=== PATIENT | female | born 1965 | race Caucasian/White ===

== ENCOUNTER 2025-01-14 05:53 | Emergency (ER) | payer SELFPAY ==
[2025-01-14] VITALS (61 sets, daily range): BP systolic 56–146; BP diastolic 47–98; PULSE 73–112; TEMP 35.1–36.5; O2SAT 82–100; BMI 25.1
--- NOTE | 2025-01-14 06:06 | ECG_ITS ---
[facility] Test Date: 2025-01-14 Pat Name: RENEE VO Department: Room: - Gender: Female [employer]: : 1965 Requested By: [id number] Order Number: [id number] Reading MD: MAGDI PAZ M.D. Measurements Intervals [place] Rate: 97 P: 37 MI: 136 QRS: 86 QRSD: 94 T: -7 QT: 428 QTc: 482 Interpretive Statements 1100 Sinus rhythm 1570 with occasional ventricular premature complexes 5234 Left ventricular hypertrophy with repolarization abnormality 9150 abnormal ECG Compared to ECG 03/26/2017 16:07:01 Ventricular premature complex(es) now present Left ventricular hypertrophy now present Electronically Signed On 01-14-2025 21:32:44 EST by MAGDI PAZ M.D.
--- NOTE | 2025-01-14 06:29 | XR_ITS ---
[place] [id number] Patient Name: HEDY VO MRN: [id number] date: 1965 Sex: F Assigned Patient Location: ER Current Patient Location: ED.MAIN Accession/Order Number: [id number] Exam Date: 01/14/2025 06:45 Report Date: 01/14/2025 07:50 At the request of: FRANDY QUACH MD Procedure: XR chest 1V PORTABLE AP ERECT CHEST 0625 hours CLINICAL HISTORY: chest and neck pain COMPARISON: None The heart is top normal in size. The thoracic aorta is dilated. There is no vascular congestion. The lungs, as visualized, are clear. There is no effusion or pneumothorax. The osseous structures are intact. There is dextroscoliotic curvature. XR/XR chest 1V IMPRESSION: SUSPECTED THORACIC AORTIC ANEURYSM. NO ACUTE PULMONARY FINDINGS Impression dictated by: Hedy Don M.D. 01/14/2025 7:50 AM Dictation Location: [place] [address] Electronically authenticated by: [id number] Y Date: 01/14/2025 07:50
[2025-01-14 06:41] LABS: Hematocrit 38.5 % (36.0-48.0); Hemoglobin 12.0 g/dL (12.0-16.0); Immature Granulocytes Abs Auto 0.05 10^3/uL (0.00-0.03); Immature Granulocytes Pct Auto 0.5 % (0.0-0.5); Lymphocytes Absolute Auto 2.2 10^3/uL (1.2-3.8); Mean Corpuscular HGB Conc 31.2 g/dL (29.9-35.2); Mean Corpuscular Hemoglobin 26.8 pg (26.7-34.0); Mean Corpuscular Volume 85.9 fL (81.0-99.0); Platelet Count 175 10^3/uL (150-450); Red Blood Count 4.48 10^6/uL (4.20-5.40); White Blood Count 10.5 10^3/uL (4.0-11.0)
--- NOTE | 2025-01-14 06:41 | ED.GENADUL1 ---
HPI HPI - General Adult General Chief complaint: Neck Pain/Injury Time Seen by Provider: 01/14/25 06:29 Source: patient Mode of arrival: ambulance Limitations: no limitations History of Present Illness HPI narrative: patient presents with right sided chest pain radiating into her neck and right shoulder. Started around 3pm. Associated with nausea, vomiting and shortness of breath. Arrives here and feels weak. Chest pain has improved. Continues to have right neck and shoulder pain. No associated abdominal pain Related Data Allergies Allergy/AdvReac Type Severity Reaction Status Date / Time lisinopril Allergy Unknown Verified 01/14/25 06:00 Opioid HPI Opioid Management Most Recent Opioid Data: Last Pain Scale 7 01/14/25, 09:00 Last ED Pain Assessment 01/14/25, 08:18 Last MAR Pain Assessment 01/14/25, 09:00 Review of Systems ROS Status of ROS 10 or more systems reviewed and unremarkable except as noted in history and below PFSH PFSH Social History Little interest or pleasure in doing things: not at all Feeling down, depressed, or hopeless: not at all Exam Constitutional Vital Signs, click to edit/add: Last Vital Signs Temp 97.7 F 01/14/25 10:20 Pulse 110 H 01/14/25 11:00 Resp 19 01/14/25 11:00 BP 125/98 H 01/14/25 11:00 Pulse Ox 99 01/14/25 11:00 O2 Del Method Nasal Cannula 01/14/25 07:40 O2 Flow Rate 3 01/14/25 07:40 Common normals: oriented x3, alert and well nourished General appearance: in distress [facility] Common normals: normocephalic and head/scalp atraumatic Eye Common normals: EOMs intact bilaterally and conjunctivae normal Respiratory Common normals: normal respiratory effort, no retractions, no use of accessory muscles and clear to auscultation bilaterally Cardio Common normals: regular rate, regular rhythm, S1 normal heart sound and S2 normal heart sound GI Common normals: Normal to inspection, nondistended, normoactive bowel sounds present, soft to palpation and non-tender Extremity Common normals: normal to inspection and full ROM Neuro Common normals: oriented x3, CN's II-XII intact bilaterally, moves all extremities and no focal motor deficits Psych Appearance: grossly normal Course Vital Signs Vital signs: Vital Signs Pulse Rate 101 H 01/14/25 05:55 Respiratory Rate 18 01/14/25 05:55 Blood Pressure 84/58 L 01/14/25 05:55 Pulse Oximetry 98 01/14/25 05:55 Oxygen Delivery Method Room Air 01/14/25 05:55 Temperature 97.7 F 01/14/25 10:20 Pulse Rate 110 H 01/14/25 11:00 Respiratory Rate 19 01/14/25 11:00 Blood Pressure 125/98 H 01/14/25 11:00 Pulse Oximetry 99 01/14/25 11:00 Oxygen Delivery Method Nasal Cannula 01/14/25 07:40 Oxygen Delivery Flow Rate 3 01/14/25 07:40 Medical Decision Making MDM Narrative Medical decision making narrative: presents with acute onset of right sided chest pain radiating into her right shoulder and neck. Daily cigarette smoker. Denies any past medical history of heart disease. Her pain has improved of her chest but continued discomfort of her right shoulder and neck. No longer has nauseated. EKG NSR with Q wave V1-[address] depression II, III, aVF and V5-6. appears to be having ACS-subendo type MS. heparin bolus ordered. labs pending. cxray reviewed and per my preliminary review no evidence of pneumo or aneurysm. Discussed with Dr Haley. labs pending at change of shift. Patient remains hypotensive and additional IV fluids ordered Lab Data Labs: Lab Results 01/14/25 Range/Units 06:05 WBC 10.5 (4.0-11.0) 10^3/uL RBC 4.48 (4.20-5.40) 10^6/uL Hgb 12.0 (12.0-16.0) g/dL Hct 38.5 (36.0-48.0) % MCV 85.9 (81.0-99.0) fL MCH 26.8 (26.7-34.0) pg MCHC 31.2 (29.9-35.2) g/dL RDW 13.7 (11.0-15.0) % Plt Count 175 (150-450) 10^3/uL MPV 11.6 (9.5-13.5) fL Neut % (Auto) 72.1 (43.0-75.0) % Lymph % (Auto) 20.5 (20.5-60.0) % [place] % (Auto) 5.0 (1.7-12.0) % Eos % (Auto) 1.6 (0.9-7.0) % Baso % (Auto) 0.3 (0.2-2.0) % Neut # (Auto) 7.6 H (1.4-6.5) 10^3/uL Lymph # (Auto) 2.2 (1.2-3.8) 10^3/uL [place] # (Auto) 0.5 (0.3-0.8) 10^3/uL Eos # (Auto) 0.2 (0.0-0.7) 10^3/uL Baso # (Auto) 0.0 (0.0-0.1) 10^3/uL Abs Immat Gran (auto) 0.05 H (0.00-0.03) 10^3/uL Imm/Tot Granulo (auto) 0.5 (0.0-0.5) % PT 10.6 (9.0-11.6) sec INR 1.00 APTT 24.4 (22.3-36.2) sec Sodium 140 (136-145) mmol/L Potassium 3.7 (3.5-5.1) mmol/L Chloride 104 (98-107) mmol/L Carbon Dioxide 26.6 (21.0-32.0) mmol/L Anion Gap 13.1 BUN 12.0 (7.0-18.0) mg/dL Creatinine 1.03 H (0.55-1.02) mg/dL Est GFR ( Amer) >60 (>=60 mL/min/1.73m^2) Est GFR (Non-Af Amer) 54 L (>=60 mL/min/1.73m^2) BUN/Creatinine Ratio 11.7 Glucose 214 H (74-106) mg/dL Calcium 8.4 L (8.5-10.1) mg/dL Total Bilirubin 0.3 (0.2-1.0) mg/dL Direct Bilirubin 0.1 (0.0-0.2) mg/dL AST 40 H (15-37) U/L ALT 26 (14-59) U/L Alkaline Phosphatase 77 (46-116) U/L Troponin I High Sens 197.5 H* (4.0-51.3) pg/mL Total Protein 6.2 L (6.4-8.2) g/dL Albumin 3.0 L (3.4-5.0) g/dL Globulin 3.2 g/dL Albumin/Globulin Ratio 0.9 Discharge Plan Discharge Chief Complaint: Neck Pain/Injury Clinical Impression: Aneurysm of thoracic aorta, Hypotension Patient Disposition: [facility] Time of Disposition Decision: 10:46 Discharge Location: [facility] Condition: Critical Mode of Transportation: EMS Discharge Date/Time: 01/14/25 11:20
[2025-01-14] MEDS: 0.9 % SODIUM CHLORIDE 1,000 ML 1000 ML IV (06:48)
[2025-01-14 07:05] LABS: Anion Gap 13.1; Blood Urea Nitrogen 12.0 mg/dL (7.0-18.0); Calcium 8.4 mg/dL (8.5-10.1); Carbon Dioxide 26.6 mmol/L (21.0-32.0); Chloride 104 mmol/L (98-107); Estimated GFR (African America >60 (>=60 mL/min/1.73m^2); Estimated GFR (Non-African Ame 54 (>=60 mL/min/1.73m^2); Glucose 214 mg/dL (74-106); Potassium 3.7 mmol/L (3.5-5.1); Sodium 140 mmol/L (136-145)
[2025-01-14] MEDS: HEPARIN SODIUM (PORCINE) 5,000 UNIT/ML VIAL 4000 UNIT IV (07:24)
[2025-01-14] MEDS: HEPARIN SODIUM,PORCINE/D5W 25,000 UNIT/500 ML IV.SOLN 16 UNIT IV (07:25)
[2025-01-14 07:29] LABS: INR 1.00; Partial Thromboplastin Time 24.4 sec (22.3-36.2); Prothrombin Time 10.6 sec (9.0-11.6)
[2025-01-14 07:30] LABS: Alanine Aminotransferase 26 U/L (14-59); Albumin Globulin Ratio 0.9; Albumin Level 3.0 g/dL (3.4-5.0); Alkaline Phosphatase 77 U/L (46-116); Aspartate Amino Transferase 40 U/L (15-37); Globulin 3.2 g/dL; Total Protein 6.2 g/dL (6.4-8.2)
[2025-01-14] MEDS: 0.9 % SODIUM CHLORIDE 1,000 ML 999 ML IV (07:34)
[2025-01-14] MEDS: NOREPINEPHRINE BITARTRATE/D5W 4 MG/250 ML PREMIX 30 MG IV (07:48)
--- NOTE | 2025-01-14 07:58 | CT_ITS ---
The [address] [address] Patient Name: HEDY VO MRN: [id number] date: 1965 Sex: F Assigned Patient Location: ER Current Patient Location: Accession/Order Number: [id number] Exam Date: 01/14/2025 08:06 Report Date: 01/14/2025 08:34 At the request of: JAMES SILVA MD Procedure: CT angio chest CTA CHEST WITH CONTRAST CLINICAL HISTORY: thoracic aneurysm on chest x-ray . Chest pain and hypotension. COMPARISON: Chest x-ray 01/14/2025 TECHNIQUE: Spiral images were obtained through the chest following intravenous administration of 100 mL of Omnipaque 350. Images were reviewed using both narrow and wide window settings. Sagittal, coronal and 3 D volume-rendered reconstructions were performed and reviewed. This CT exam was performed using one or more following dose reduction techniques: Automated exposure control, adjustment of the mA and/or kV according to patient size, or use of iterative reconstruction technique. FINDINGS: The heart is top normal in size. There is pericardial effusion. There is aneurysmal dilatation of the ascending aorta with diameter of approximately 6.7 cm. There is some wall irregularity anteriorly which could indicate leak/impending rupture. There is some tapering at the arch however the proximal descending aorta is also dilated with diameter of approximately 6.2 cm. The descending aorta tapers down toward the diaphragmatic hiatus where there are some atherosclerotic plaque. There is adequate opacification of the pulmonary arteries. No emboli are identified. No pathologic lymphadenopathy is seen. Mild degenerative changes and dextroscoliotic curvature are visualized at the spine. Mild scarring and atelectasis are present. There is no consolidation, effusion or pneumothorax. Limited cuts through the upper abdomen show no contributory abnormality. CT/CT angio chest IMPRESSION: NO CT EVIDENCE OF PULMONARY EMBOLISM. ASCENDING AND DESCENDING AORTIC ANEURYSMS, DESCRIBED. LEAK AND/OR IMPENDING RUPTURE AT THE PROXIMAL ASCENDING AORTA IS NOT EXCLUDED. PERICARDIAL EFFUSION. MILD ATELECTASIS AND SCARRING. Comment: Findings were discussed with Dr. Silva at 0830 hours Impression dictated by: Hedy Don M.D. 01/14/2025 8:34 AM Dictation Location: [place] [address] Electronically authenticated by: [id number] Y Date: 01/14/2025 08:34
[2025-01-14] MEDS: MORPHINE SULFATE 2 MG/ML SYRINGE IV (09:00)
--- NOTE | 2025-01-14 10:47 | ED.GENADUL1 ---
HPI HPI - General Adult General Chief complaint: Neck Pain/Injury Time Seen by Provider: 01/14/25 06:29 Source: patient Mode of arrival: ambulance Limitations: no limitations History of Present Illness HPI narrative: 59-year-old female presented to the emergency department and was initially seen by Dr. Esteban and signed out to me after discussing the case with him thoroughly. Please see his full history and physical exam. Related Data Allergies Allergy/AdvReac Type Severity Reaction Status Date / Time lisinopril Allergy Unknown Verified 01/14/25 06:00 Opioid HPI Opioid Management Most Recent Opioid Data: Last Pain Scale 7 Today, 09:00 Last ED Pain Assessment Today, 08:18 Last MAR Pain Assessment Today, 09:00 PFS PFSH Social History Little interest or pleasure in doing things: not at all Feeling down, depressed, or hopeless: not at all Exam Constitutional Vital Signs, click to edit/add: Last Vital Signs Temp 97.7 F 01/14/25 10:20 Pulse 112 H 01/14/25 10:41 Resp 20 01/14/25 10:41 BP 114/72 01/14/25 10:41 Pulse Ox 100 01/14/25 10:41 O2 Del Method Nasal Cannula 01/14/25 07:40 O2 Flow Rate 3 01/14/25 07:40 Course Vital Signs Vital signs: Vital Signs Pulse Rate 101 H 01/14/25 05:55 Respiratory Rate 18 01/14/25 05:55 Blood Pressure 84/58 L 01/14/25 05:55 Pulse Oximetry 98 01/14/25 05:55 Oxygen Delivery Method Room Air 01/14/25 05:55 Temperature 97.7 F 01/14/25 10:20 Pulse Rate 112 H 01/14/25 10:41 Respiratory Rate 20 01/14/25 10:41 Blood Pressure 114/72 01/14/25 10:41 Pulse Oximetry 100 01/14/25 10:41 Oxygen Delivery Method Nasal Cannula 01/14/25 07:40 Oxygen Delivery Flow Rate 3 01/14/25 07:40 Medical Decision Making [facility] Narrative Medical decision making narrative: The patient presented with chest pain and ST segment depression. The patient had an elevated troponin and the initial thought was NSTEMI. Ultimately the chest x-ray was read by the radiologist who suggested there to be a thoracic aneurysm so CT of the chest was ordered. This does confirm large ascending and descending thoracic aneurysm with possible leak. She has been hypotensive and was given IV fluids and ultimately was placed on Levophed which has raised her blood pressure into the low 100s systolic range. Most recent blood pressure is 122/81. Prior to the diagnosis of thoracic aneurysm I had spoken to clinical instructor at [facility], Dr. Pettit. Subsequently the aneurysm was identified and I spoke to Dr. Rodriges, cardiothoracic surgeon at [facility]. He accepts the patient. There is a delay in transportation because of weather, helicopters are not flying. He suggested I speak to [facility] and I did so and they are not flying either and cannot facilitate her transfer any faster than getting to [facility]. She will therefore be transferred to [facility]. Family was thoroughly updated on her status and informed of the significance of this aneurysm and the possible leak and the very likely need for surgery. They were also informed of the possibility of rupture and ultimate . Differential Diagnosis Differential Diagnosis: STEMI, NSTEMI, aneurysm, PE Lab Data Lab results reviewed: Yes I reviewed the patient's lab results Labs: Lab Results 01/14/25 Range/Units 06:05 WBC 10.5 (4.0-11.0) 10^3/uL RBC 4.48 (4.20-5.40) 10^6/uL Hgb 12.0 (12.0-16.0) g/dL Hct 38.5 (36.0-48.0) % MCV 85.9 (81.0-99.0) fL MCH 26.8 (26.7-34.0) pg MCHC 31.2 (29.9-35.2) g/dL RDW 13.7 (11.0-15.0) % Plt Count 175 (150-450) 10^3/uL MPV 11.6 (9.5-13.5) fL Neut % (Auto) 72.1 (43.0-75.0) % Lymph % (Auto) 20.5 (20.5-60.0) % [place] % (Auto) 5.0 (1.7-12.0) % Eos % (Auto) 1.6 (0.9-7.0) % Baso % (Auto) 0.3 (0.2-2.0) % Neut # (Auto) 7.6 H (1.4-6.5) 10^3/uL Lymph # (Auto) 2.2 (1.2-3.8) 10^3/uL [place] # (Auto) 0.5 (0.3-0.8) 10^3/uL Eos # (Auto) 0.2 (0.0-0.7) 10^3/uL Baso # (Auto) 0.0 (0.0-0.1) 10^3/uL Abs Immat Gran (auto) 0.05 H (0.00-0.03) 10^3/uL Imm/Tot Granulo (auto) 0.5 (0.0-0.5) % PT 10.6 (9.0-11.6) sec INR 1.00 APTT 24.4 (22.3-36.2) sec Sodium 140 (136-145) mmol/L Potassium 3.7 (3.5-5.1) mmol/L Chloride 104 (98-107) mmol/L Carbon Dioxide 26.6 (21.0-32.0) mmol/L Anion Gap 13.1 BUN 12.0 (7.0-18.0) mg/dL Creatinine 1.03 H (0.55-1.02) mg/dL Est GFR ( Amer) >60 (>=60 mL/min/1.73m^2) Est GFR (Non-Af Amer) 54 L (>=60 mL/min/1.73m^2) BUN/Creatinine Ratio 11.7 Glucose 214 H (74-106) mg/dL Calcium 8.4 L (8.5-10.1) mg/dL Total Bilirubin 0.3 (0.2-1.0) mg/dL Direct Bilirubin 0.1 (0.0-0.2) mg/dL AST 40 H (15-37) U/L ALT 26 (14-59) U/L Alkaline Phosphatase 77 (46-116) U/L Troponin I High Sens 197.5 H* (4.0-51.3) pg/mL Total Protein 6.2 L (6.4-8.2) g/dL Albumin 3.0 L (3.4-5.0) g/dL Globulin 3.2 g/dL Albumin/Globulin Ratio 0.9 Imaging Data Chest x-ray: Radiologist's impression: ITS Impressions Chest X-Ray 01/14/25 06:29 IMPRESSION: SUSPECTED THORACIC AORTIC ANEURYSM. NO ACUTE PULMONARY FINDINGS Impression dictated by: Hedy Don M.D. 01/14/2025 7:50 AM Dictation Location: [facility] Electronically authenticated by: [id number] Y Date: 01/14/2025 07:50 Chest CTA 01/14/25 07:58 IMPRESSION: NO CT EVIDENCE OF PULMONARY EMBOLISM. ASCENDING AND DESCENDING AORTIC ANEURYSMS, DESCRIBED. LEAK AND/OR IMPENDING RUPTURE AT THE PROXIMAL ASCENDING AORTA IS NOT EXCLUDED. PERICARDIAL EFFUSION. MILD ATELECTASIS AND SCARRING. Comment: Findings were discussed with Dr. Haley at 0830 hours Impression dictated by: Hedy Don M.D. 01/14/2025 8:34 AM Dictation Location: [facility] Electronically authenticated by: [id number] Y Date: 01/14/2025 08:34 ECG Data Attestation: I personally reviewed and interpreted this ECG as follows: (EKG on my interpretation shows ST depression inferiorly and laterally) Critical Care Time Critical Care Time Critical Care Time: Yes Total Critical Care Time: 130 Attestation: Due to the high probability of sudden and clinically significant deterioration in the patient's condition he/she required the highest level of my preparedness to intervene urgently I provided critical care time including documentation time, medication orders and management, reevaluation, vital sign assessment, ordering and reviewing of lab tests, ordering and reviewing of x-ray studies, and admission orders. Aggregate critical care time is 130 minutes including only time during which I was engaged in work directly related to his/her care and did not include time spent treating other patients simultaneously. Discharge Plan Discharge Chief Complaint: Neck Pain/Injury Clinical Impression: Aneurysm of thoracic aorta, Hypotension Patient Disposition: [facility] Time of Disposition Decision: 10:46 Discharge Location: [facility] Condition: Critical Mode of Transportation: EMS
[2025-01-15 03:54] LABS: A. calcoaceticus-baumannii Cpx NOT DETECTED (NOT DETECTE); Bacteroides fragilis NOT DETECTED (NOT DETECTE); Candida auris NOT DETECTED (NOT DETECTE); Candida glabrata NOT DETECTED (NOT DETECTE); Enterobacterales NOT DETECTED (NOT DETECTE); Enterococcus faecalis NOT DETECTED (NOT DETECTE); Enterococcus faecium NOT DETECTED (NOT DETECTE); Klebsiella aerogenes NOT DETECTED (NOT DETECTE); Klebsiella pneumoniae group NOT DETECTED (NOT DETECTE); Proteus spp. NOT DETECTED (NOT DETECTE); Salmonella spp. NOT DETECTED (NOT DETECTE); Serratia marcescens NOT DETECTED (NOT DETECTE); Source BLOOD; Staphylococcus lugdunensis NOT DETECTED (NOT DETECTE); Stenotrophomonas maltophilia NOT DETECTED (NOT DETECTE); Streptococcus pyogenes NOT DETECTED (NOT DETECTE); Streptococcus spp. NOT DETECTED (NOT DETECTE)
[2025-01-15 07:05] LABS: Staphylococcus epidermidis DETECTED (NOT DETECTE); Staphylococcus spp. DETECTED (NOT DETECTE); mecA/C DETECTED (NOT DETECTE)
--- NOTE | 2025-01-15 07:44 | PC.NURSE ---
PRELIM BLOOD CULTURE BACK. FAXED RESULTS TO [facility]. SPOKE WITH BRYSON ON THE PHONE AND IS AWARE.
== END 2025-01-14 11:20 | disposition short-term general hospital (02) ==
PROVIDERS: Internal Medicine; Emergency Provider Emergency Medicine; PCP Nurse Practitioner
DX: I71.21 Aneurysm of the ascending aorta, without rupture (principal); I71.9 Aortic aneurysm of unspecified site, without rupture; R68.0 Hypothermia, not associated with low environmental temperature; F17.210 Nicotine dependence, cigarettes, uncomplicated
CPT/HCPCS: 36415; 71045; 71275; 80048; 80076; 84484; 85025; 85610; 85730; 87040; 87150; 93005; 96361; 96365; 96366; 96368; 96375; 96376; 99285; J1644; J2270; J2405; Q9967